=== PATIENT | female | born 1970 | race Caucasian/White ===

== ENCOUNTER → 2016-08-04 | Outpatient (CLI) | payer OTHER | LOC: EMI 09:00 | DX: G35 Multiple sclerosis (principal); R27.0 Ataxia, unspecified | CPT/HCPCS: 70553; 72156; A9577; J7050 ==

== ENCOUNTER → 2020-12-06 | Outpatient (CLI) | payer OTHER | LOC: EMI 09:59 | DX: G35 Multiple sclerosis (principal); R93.0 Abnormal findings on diagnostic imaging of skull and head, not elsewhere classified; M50.321 Other cervical disc degeneration at C4-C5 level | CPT/HCPCS: 70553; 72156; A9577 ==